=== PATIENT | male | born 1995 | race Caucasian/White ===

== ENCOUNTER 2017-08-08 20:25 | Emergency (ER) | payer BC, OTHER ==
[2017-08-08 20:36] VITALS: RESP 18
--- NOTE | 2017-08-08 21:44 | EDPHY ---
H & P Stated Complaint: dysuria HPI/ROS: HPI CHIEF COMPLAINT: Dysuria x4 days, discharge HISTORY OF PRESENT ILLNESS: This patient very pleasant 21-year-old male otherwise healthy no significant medical history presents emergency room with dysuria and penile discharge x1 day. He noticed dysuria for the past 4 days. Urethral discharge x1 day whitish discharge. Denies denies testicular pain or swelling. Denies rash fever. Patient thinks he may have an STI. Past Medical History: No significant medical history Past Surgical History: No significant surgical Social History: Denies daily use of drugs alcohol tobacco products. Family History: Noncontributory ROS REVIEW OF SYSTEMS: A comprehensive 10 point review of systems is otherwise negative aside from elements mentioned in the history of present illness. Exam Constitutional appears well nontoxic, triage nursing summary reviewed, vital signs reviewed, awake/alert. Eyes normal conjunctivae and sclera, EOMI, PERRLA. HENT normal inspection, atraumatic, moist mucus membranes, no epistaxis, neck supple/ no meningismus, no raccoon eyes. Respiratory clear to auscultation bilaterally, normal breath sounds, no respiratory distress, no wheezing. Cardiovascular rate normal, regular rhythm, no murmur, no edema, distal pulses normal. Gastrointestinal soft, non-tender, no rebound, no guarding, normal bowel sounds, no distension, no pulsatile mass. Genitourinary no CVA tenderness. Musculoskeletal no midline vertebral tenderness, full range of motion, no calf swelling, no tenderness of extremities, no meningismus, good pulses, neurovascularly intact. Skin pink, warm, & dry, no rash, skin atraumatic. Neurologic awake, alert and oriented x 3, AAOx3, moves all 4 extremities equally, motor intact, sensory intact, CN II-XII intact, normal cerebellar, normal vision, normal speech. Psychiatric normal mood/affect. Heme/Lymph/Immune no lymphadenopathy. Differential Diagnosis: Includes but is not limited to and in no particular order: Includes urinary tract infection, urethritis, STI. Medical Decision Making: Plan for this patient dirty catch urine, clean catch urine. Treat with IM Rocephin 250 mg, 2 g of azithromycin. Check UA. Recommend no intercourse for 2 weeks. For and have his partner treated. Re-evaluation: Patient received IM Rocephin 250 mg, 2 g of azithromycin. Additionally his urine culture has been sent. 2+ leukocyte esterase and whites. Will start on Keflex 1st dose given here in emergency room. Prescription for Keflex for the rest. Treated for STI. Treated for UTI. He understands return to ER for worsening symptoms questions or concerns. Source: Patient - Personal History Current Tetanus/Diphtheria Vaccine: Unsure - Medical/Surgical History Hx Asthma: No Hx Chronic Respiratory Disease: No Hx Diabetes: No Hx Cardiac Disease: No Hx Renal Disease: No Hx Cirrhosis: No Hx Alcoholism: No Hx HIV/AIDS: No Hx Splenectomy or Spleen Trauma: No Other PMH: no pmh - Social History Smoking Status: Never smoked Constitutional: Initial Vital Signs Temperature (C) 36.9 C 08/08/17 20:33 Heart Rate 74 08/08/17 20:33 Respiratory Rate 18 08/08/17 20:33 Blood Pressure 121/73 H 08/08/17 20:33 O2 Sat (%) 96 08/08/17 20:33 O2 Delivery Mode Room Air Allergies/Adverse Reactions: penicillin G Allergy (Verified 08/08/17 20:36) Home Medications: Medication Instructions Recorded Cephalexin [Keflex] 500 mg PO Q6H #28 cap 08/08/17 Medical Decision Making - Data Points Laboratory Results: 08/08/17 08/08/17 22:15 21:34 Urine Color YELLOW Urine Appearance HAZY Urine pH 5.0 (5.0-7.5) Ur Specific [place] 1.029 (1.002-1.030) Urine Protein NEGATIVE (NEGATIVE) Urine Ketones NEGATIVE (NEGATIVE) Urine Blood NEGATIVE (NEGATIVE) Urine Nitrate NEGATIVE (NEGATIVE) Urine Bilirubin NEGATIVE (NEGATIVE) Urine Urobilinogen NEGATIVE EU EU (0.2-1.0) Ur Leukocyte Esterase 2+ H (NEGATIVE) Urine RBC 10-15 /hpf H /hpf (0-3) Urine WBC 25-50 /hpf H /hpf (0-3) Ur Epithelial Cells NONE SEEN /lpf /lpf (NONE-1+) Urine Mucus 1+ /lpf /lpf (NONE-1+) Urine Glucose NEGATIVE (NEGATIVE) N.gonorrhoeae RNA (TMA) Pending Medications Given: Discontinued Medications Azithromycin (Zithromax) 2,000 mg PO EDNOW ONE PRN Reason: Protocol Stop: 08/08/17 21:48 Last Admin: 08/08/17 23:10 Dose: 2,000 mg Ceftriaxone Sodium (Rocephin Im Syringe) 250 mg IM EDNOW ONE PRN Reason: Protocol Stop: 08/08/17 21:48 Last Admin: 08/08/17 23:10 Dose: 250 mg Departure - Departure Disposition: Home, Routine, Self-Care Clinical Impression: STI (sexually transmitted infection) UTI (urinary tract infection) Qualifiers: Urinary tract infection type: acute cystitis Hematuria presence: without hematuria Qualified Code(s): N30.00 - Acute cystitis without hematuria Condition: Good Instructions: Sexually Transmitted Diseases (ED), Urinary Tract Infection in Men (ED) Additional Instructions: 1. No intercourse for 2 weeks. 2. The return emergency room if you have worsening symptoms questions or concerns. 3. You been treated for gonorrhea and chlamydia. 4. Please get your partners treated. 5. Antibiotics as prescribed. Referrals: Enrico Mark DO [Primary Care Provider] - As per Instructions Prescriptions: Cephalexin [Keflex] 500 mg PO Q6H #28 cap
[2017-08-08] MEDS ORDERED: AZITHROMYCIN 250 MG TAB PO ONE (21:47)
[2017-08-08] MEDS ORDERED: CEFTRIAXONE IM 350 MG/ML SYRINGE IM ONE (21:47)
[2017-08-08 22:56] LABS: COLOR YELLOW; LEUKOCYTE ESTERASE,URINE 2+ (NEGATIVE); NITRITE,URINE NEGATIVE (NEGATIVE)
[2017-08-08 23:05] LABS: MUCUS 1+ /lpf (NONE-1+); WBC,URINE 25-50 /hpf (0-3)
[2017-08-08] MEDS ORDERED: CEPHALEXIN 500MG PREPACK#4 BTL TAKEHOME ONE (23:11)
[2017-08-08] MEDS ORDERED: CEPHALEXIN 500 MG CAP PO ONE (23:11)
[2017-08-08 23:36] VITALS: BP 124/82; PULSE 76; TEMP 97.7; O2SAT 97
[2017-08-09 12:48] LABS: CHLAMYDIA AMPLIFICATION GENPRB POSITIVE (NEGATIVE)
== END 2017-08-08 23:34 | disposition home or self-care (01) ==
DX: N30.00 Acute cystitis without hematuria (principal); A64 Unspecified sexually transmitted disease
CPT/HCPCS: J0696